=== PATIENT | male | born 1955 | race Caucasian/White ===

== ENCOUNTER 2023-08-20 00:35 | Inpatient (IN) | payer OTHER, MEDICARE ==
[~2023-08-20] VITALS: Ht 175.3 cm; Wt 81.6 kg
[2023-08-20] VITALS (11 sets, daily range): BP systolic 111–143; BP diastolic 60–75; PULSE 63–107; RESP 18–24; TEMP 97.2–98.5; O2SAT 92–99
[2023-08-20] MEDS: NACL 0.9% 1,000 ML IV ONE (01:53)
[2023-08-20 01:58] LABS: BASOPHILS % (AUTO) 0.4 % (0.0-2.0); EOSINOPHILS % (AUTO) 0.6 % (0.0-4.0); HEMATOCRIT 34.8 % (36-52); HEMOGLOBIN 11.5 g/dL (12.0-18.0); LYMPHOCYTES # (AUTO) 0.5 K/uL (2.0-11.5); LYMPHOCYTES % (AUTO) 6.1 % (20.5-51.1); MEAN CORPUSCULAR HEMOGLOBIN 34 pg (27-31); MEAN CORPUSCULAR HGB CONC 33 g/dL (33-37); MEAN CORPUSCULAR VOLUME 101.9 fL (80-94); MONOCYTES # (AUTO) 0.3 K/uL (0.8-1.0); MONOCYTES % (AUTO) 3.7 % (1.7-9.3); NEUTROPHILS # (AUTO) 7.9 K/uL (1.8-7.7); NEUTROPHILS % (AUTO) 89.2 % (42.2-75.2); PLATELET COUNT (AUTO) 222 K/uL (140-450); RED BLOOD CELL COUNT(AUTO) 3.42 MIL/uL (4.20-6.10); RED CELL DISTRIBUTION WIDTH 15.7 % (11.6-13.7); WHITE BLOOD COUNT (AUTO) 8.8 K/uL (4.8-10.8)
[2023-08-20 02:16] LABS: ANION GAP 7.6 (8-16); CALCIUM 9.1 mg/dL (8.5-10.1); CARBON DIOXIDE 36.5 mmol/L (21-32); CREATININE 1.3 mg/dL (0.6-1.3); POTASSIUM 5.1 mmol/L (3.5-5.1)
[2023-08-20 02:25] LABS: LACTIC ACID 1.2 mmol/L (0.4-2.0)
[2023-08-20 02:34] LABS: BILIRUBIN,DIRECT 0.1 mg/dL (0.0-0.3); TOTAL BILIRUBIN 0.2 mg/dL (0.0-1.0)
[2023-08-20] MEDS: ALBUTEROL SULFATE/IPRATROPIU 3 ML SOL IH ONE (02:34)
[2023-08-20 02:35] LABS: ALANINE AMINOTRANSFERASE 36 U/L (12-78); ALBUMIN 2.6 g/dL (3.4-5.0); ALKALINE PHOSPHATASE 86 U/L (50-136); ASPARTATE AMINOTRANSFERASE 26 U/L (15-37); LIPASE 25 U/L (16-77); TOTAL PROTEIN, SERUM 7.3 g/dL (6.4-8.2)
[2023-08-20 04:17] LABS: APPEARANCE,URINE CLEAR (CLEAR); BILIRUBIN,URINE NEGATIVE (NEGATIVE); BLOOD, URINE 3+ (NEGATIVE); COLOR,URINE YELLOW (YELLOW); LEUKOCYTE ESTERASE ,URINE 2+ (NEGATIVE); NITRITE, URINE NEGATIVE (NEGATIVE); PH,URINE 6.5 (5.0-9.0); PROTEIN,URINE 1+ (NEGATIVE); UGLUCOSE NEGATIVE (NEGATIVE); UROBILINOGEN,URINE 0.2 EU/dL (0.2 - 1)
[2023-08-20 04:30] LABS: BACTERIA,URINE >30 (MANY) /HPF (None Seen); MUCUS,URINE 1+ /LPF (None Seen); SQUAMOUS EPITHELIAL CELL,UR 0-3 (FEW) /LPF (0-3 (FEW)); WBC,URINE TOO MANY TO COUNT /HPF (0-5)
[2023-08-20 05:21] LABS: BLOOD GAS BASE EXCESS 4.7 mmol/L (-2.0-2.0); BLOOD GAS HCO3 29.3 mmol/L (22-26); BLOOD GAS PCO2 43.4 mmHg (35-45); BLOOD GAS PH 7.447 (7.35-7.45); BLOOD GAS PO2 63.2 mmHg (75-100)
[2023-08-20 05:22] LABS: BLOOD GAS O2 SAT% 91.6 % (92.0-98.5)
[2023-08-20] MEDS ORDERED: cefTRIAXone 1,000 MG VIAL ONE ×2 (05:37→07:38)
[2023-08-20] MEDS ORDERED: MORPHINE SULFATE 4 MG/ML SYR IVP PRN (07:10)
[2023-08-20] MEDS ORDERED: MAGNESIUM OXIDE 400 MG TAB PO PRN (07:10)
[2023-08-20] MEDS ORDERED: MAG SULF 2000 MG/WATER PREMIX 50 ML IV PRN (07:10)
[2023-08-20] MEDS ORDERED: POTASSIUM CHLORIDE 10 MEQ TABER PO PRN (07:10)
[2023-08-20] MEDS ORDERED: ONDANSETRON 4 MG/2 ML VIAL IVP PRN (07:10)
[2023-08-20] MEDS ORDERED: KCL 20 MEQ IN 100 mL PREMIX 200 ML IV PRN (07:10)
[2023-08-20] MEDS ORDERED: ACETAMINOPHEN 325 MG TAB PO PRN (07:10)
[2023-08-20] MEDS ORDERED: HYDROcodone/APAP 5/325 MG 1 TAB TAB PO PRN (07:10)
[2023-08-20] MEDS: NACL 0.9% 1,000 ML IV SCH (07:45)
[2023-08-20] MEDS ORDERED: ACETAMINOPHEN 325 MG TAB GT PRN (08:30)
[2023-08-20] MEDS ORDERED: MAGNESIUM OXIDE 400 MG TAB GT PRN (08:30)
[2023-08-20] MEDS ORDERED: DOCUSATE SODIUM 100 MG GELCAP PO SCH (09:00)
[2023-08-20] MEDS: DOCUSATE 100 MG/10 ML UDC GT SCH (09:00)
[2023-08-20] MEDS ORDERED: FAMO-90 GT (12:29)
[2023-08-20] MEDS ORDERED: MIRT7.5T14 GT (12:29)
[2023-08-20] MEDS ORDERED: DOCU50LI8 GT (12:29)
[2023-08-20] MEDS ORDERED: ASCO-518 GT (12:29)
[2023-08-20] MEDS ORDERED: MIRABULK GT (12:29)
[2023-08-20] MEDS ORDERED: ASPI-1129 GT (12:29)
[2023-08-20] MEDS ORDERED: CHOL500014 GT (12:29)
[2023-08-20] MEDS ORDERED: KEP500L GT (12:29)
[2023-08-20] MEDS ORDERED: TAMS0.4C96 GT (12:29)
[2023-08-20] MEDS ORDERED: SENN-309 GT (12:29)
[2023-08-20] MEDS ORDERED: ATI.5 GT (12:29)
[2023-08-20] MEDS ORDERED: FINA-54 GT (12:29)
[2023-08-20] MEDS ORDERED: OSC500 GT (12:29)
[2023-08-20] MEDS ORDERED: ZINC220C9 GT (12:29)
[2023-08-20] MEDS: MEDS-TO-BEDS MC SCH (21:59)
[2023-08-21] VITALS (10 sets, daily range): BP systolic 106–146; BP diastolic 57–78; PULSE 85–110; RESP 18–22; TEMP 97–98.9; O2SAT 95–98
[2023-08-21 05:54] LABS: BASOPHILS % (AUTO) 0.5 % (0.0-2.0); EOSINOPHILS # (AUTO) 0.3 K/uL (0-0.4); EOSINOPHILS % (AUTO) 4.3 % (0.0-4.0); HEMATOCRIT 31.3 % (36-52); HEMOGLOBIN 10.3 g/dL (12.0-18.0); LYMPHOCYTES # (AUTO) 0.7 K/uL (2.0-11.5); LYMPHOCYTES % (AUTO) 11.2 % (20.5-51.1); MEAN CORPUSCULAR HEMOGLOBIN 34 pg (27-31); MEAN CORPUSCULAR HGB CONC 33 g/dL (33-37); MEAN CORPUSCULAR VOLUME 102.6 fL (80-94); MONOCYTES # (AUTO) 0.5 K/uL (0.8-1.0); MONOCYTES % (AUTO) 7.3 % (1.7-9.3); NEUTROPHILS # (AUTO) 4.8 K/uL (1.8-7.7); NEUTROPHILS % (AUTO) 76.7 % (42.2-75.2); PLATELET COUNT (AUTO) 191 K/uL (140-450); RED BLOOD CELL COUNT(AUTO) 3.05 MIL/uL (4.20-6.10); RED CELL DISTRIBUTION WIDTH 16.2 % (11.6-13.7); WHITE BLOOD COUNT (AUTO) 6.3 K/uL (4.8-10.8)
[2023-08-21 06:22] LABS: ALBUMIN 2.4 g/dL (3.4-5.0); ANION GAP 10.1 (8-16); CALCIUM 8.7 mg/dL (8.5-10.1); CARBON DIOXIDE 32.1 mmol/L (21-32); MAGNESIUM 2.4 mg/dL (1.8-2.4); POTASSIUM 4.2 mmol/L (3.5-5.1); TOTAL BILIRUBIN 0.4 mg/dL (0.0-1.0); TOTAL PROTEIN, SERUM 6.7 g/dL (6.4-8.2)
[2023-08-21] MEDS: SODIUM PHOSPHATE 118 ML ENEM RC SCH (07:03)
[2023-08-21] MEDS: SUPREP BOWEL PREP KIT 354 ML SOLN.RECON GT SCH (09:20)
[2023-08-21] MEDS: ERYTHROMYCIN 250 MG in NACL 0.9% 100 ML IV SCH (12:36)
[2023-08-21] MEDS: ALBUTEROL SULFATE/IPRATROPIU 3 ML SOL IH SCH (13:00)
[2023-08-21] MEDS: ACETYLCYSTEINE 10% (100 MG/ML) 100 MG/ML VIAL INH SCH (15:58)
[2023-08-21] MEDS: HYDROcodone/APAP 5/325 MG 1 TAB TAB GT PRN (21:52)
[2023-08-22] VITALS (11 sets, daily range): BP systolic 108–131; BP diastolic 51–83; PULSE 78–102; RESP 16–21; TEMP 97–98.2; O2SAT 90–98
[2023-08-22] MEDS ORDERED: LORazepam 2 MG/ML VIAL IVP PRN (02:25)
[2023-08-22 06:00] LABS: BASOPHILS % (AUTO) 0.8 % (0.0-2.0); EOSINOPHILS # (AUTO) 0.1 K/uL (0-0.4); EOSINOPHILS % (AUTO) 1.7 % (0.0-4.0); HEMATOCRIT 31.2 % (36-52); HEMOGLOBIN 10.2 g/dL (12.0-18.0); LYMPHOCYTES # (AUTO) 0.5 K/uL (2.0-11.5); LYMPHOCYTES % (AUTO) 12.2 % (20.5-51.1); MEAN CORPUSCULAR HEMOGLOBIN 34 pg (27-31); MEAN CORPUSCULAR HGB CONC 33 g/dL (33-37); MEAN CORPUSCULAR VOLUME 102.7 fL (80-94); MONOCYTES # (AUTO) 0.3 K/uL (0.8-1.0); MONOCYTES % (AUTO) 8.1 % (1.7-9.3); NEUTROPHILS % (AUTO) 77.2 % (42.2-75.2); PLATELET COUNT (AUTO) 204 K/uL (140-450); RED BLOOD CELL COUNT(AUTO) 3.04 MIL/uL (4.20-6.10); RED CELL DISTRIBUTION WIDTH 15.6 % (11.6-13.7); WHITE BLOOD COUNT (AUTO) 3.8 K/uL (4.8-10.8)
[2023-08-22 06:13] LABS: ALBUMIN 2.2 g/dL (3.4-5.0); ANION GAP 10.8 (8-16); CALCIUM 8.4 mg/dL (8.5-10.1); CARBON DIOXIDE 30.8 mmol/L (21-32); CREATININE 0.9 mg/dL (0.6-1.3); MAGNESIUM 2.5 mg/dL (1.8-2.4); POTASSIUM 3.6 mmol/L (3.5-5.1); TOTAL BILIRUBIN 0.3 mg/dL (0.0-1.0); TOTAL PROTEIN, SERUM 6.5 g/dL (6.4-8.2)
[2023-08-22] MEDS: levETIRAcetam 500 MG in NACL 0.9% 100 ML IV SCH (09:36)
[2023-08-22] MEDS: MEDS-TO-BEDS MC SCH (20:54)
[2023-08-23] VITALS (11 sets, daily range): BP systolic 113–153; BP diastolic 58–76; PULSE 88–103; RESP 17–22; TEMP 97.6–98.6; O2SAT 90–98
[2023-08-23 07:00] LABS: ANION GAP 12.9 (8-16); CALCIUM 8.4 mg/dL (8.5-10.1); CARBON DIOXIDE 28.2 mmol/L (21-32); CREATININE 1.2 mg/dL (0.6-1.3); POTASSIUM 3.1 mmol/L (3.5-5.1)
[2023-08-23 07:01] LABS: ALBUMIN 2.4 g/dL (3.4-5.0); MAGNESIUM 2.3 mg/dL (1.8-2.4); TOTAL BILIRUBIN 0.3 mg/dL (0.0-1.0); TOTAL PROTEIN, SERUM 6.6 g/dL (6.4-8.2)
[2023-08-23 08:00] LABS: BASOPHILS # (AUTO) 0.1 K/uL (0.00-0.22); BASOPHILS % (AUTO) 1.2 % (0.0-2.0); EOSINOPHILS # (AUTO) 0.1 K/uL (0-0.4); EOSINOPHILS % (AUTO) 2.2 % (0.0-4.0); HEMATOCRIT 29.5 % (36-52); HEMOGLOBIN 9.7 g/dL (12.0-18.0); LYMPHOCYTES # (AUTO) 0.6 K/uL (2.0-11.5); LYMPHOCYTES % (AUTO) 12.9 % (20.5-51.1); MEAN CORPUSCULAR HEMOGLOBIN 34 pg (27-31); MEAN CORPUSCULAR HGB CONC 33 g/dL (33-37); MEAN CORPUSCULAR VOLUME 102.5 fL (80-94); MONOCYTES # (AUTO) 0.3 K/uL (0.8-1.0); MONOCYTES % (AUTO) 6.9 % (1.7-9.3); NEUTROPHILS # (AUTO) 3.7 K/uL (1.8-7.7); NEUTROPHILS % (AUTO) 76.8 % (42.2-75.2); PLATELET COUNT (AUTO) 203 K/uL (140-450); RED BLOOD CELL COUNT(AUTO) 2.88 MIL/uL (4.20-6.10); WHITE BLOOD COUNT (AUTO) 4.8 K/uL (4.8-10.8)
[2023-08-23] MEDS: POTASSIUM CHLORIDE 20% 40 MEQ/15 ML UDC GT PRN (09:10)
[2023-08-24] VITALS (13 sets, daily range): BP systolic 118–150; BP diastolic 77; PULSE 78–103; RESP 17–22; TEMP 97.1–98.1; O2SAT 86–99
[2023-08-24 05:34] LABS: BASOPHILS # (AUTO) 0.1 K/uL (0.00-0.22); BASOPHILS % (AUTO) 1.4 % (0.0-2.0); EOSINOPHILS # (AUTO) 0.4 K/uL (0-0.4); EOSINOPHILS % (AUTO) 10.8 % (0.0-4.0); HEMATOCRIT 28.5 % (36-52); HEMOGLOBIN 9.5 g/dL (12.0-18.0); LYMPHOCYTES # (AUTO) 0.7 K/uL (2.0-11.5); LYMPHOCYTES % (AUTO) 18.6 % (20.5-51.1); MEAN CORPUSCULAR HEMOGLOBIN 34 pg (27-31); MEAN CORPUSCULAR HGB CONC 33 g/dL (33-37); MEAN CORPUSCULAR VOLUME 102.2 fL (80-94); MONOCYTES # (AUTO) 0.4 K/uL (0.8-1.0); MONOCYTES % (AUTO) 9.7 % (1.7-9.3); NEUTROPHILS # (AUTO) 2.2 K/uL (1.8-7.7); NEUTROPHILS % (AUTO) 59.5 % (42.2-75.2); PLATELET COUNT (AUTO) 177 K/uL (140-450); RED BLOOD CELL COUNT(AUTO) 2.79 MIL/uL (4.20-6.10); RED CELL DISTRIBUTION WIDTH 16.3 % (11.6-13.7); WHITE BLOOD COUNT (AUTO) 3.7 K/uL (4.8-10.8)
[2023-08-24 06:02] LABS: ALBUMIN 2.3 g/dL (3.4-5.0); ANION GAP 10.7 (8-16); CALCIUM 7.9 mg/dL (8.5-10.1); CARBON DIOXIDE 31.8 mmol/L (21-32); CREATININE 0.9 mg/dL (0.6-1.3); MAGNESIUM 2.3 mg/dL (1.8-2.4); POTASSIUM 3.5 mmol/L (3.5-5.1); TOTAL BILIRUBIN 0.3 mg/dL (0.0-1.0); TOTAL PROTEIN, SERUM 6.2 g/dL (6.4-8.2)
[2023-08-25] VITALS (9 sets, daily range): BP systolic 132–150; BP diastolic 75–77; PULSE 87–96; RESP 17–21; TEMP 98.2–98.4; O2SAT 85–97
[2023-08-25 05:20] LABS: BASOPHILS # (AUTO) 0.1 K/uL (0.00-0.22); BASOPHILS % (AUTO) 2.4 % (0.0-2.0); EOSINOPHILS # (AUTO) 0.4 K/uL (0-0.4); EOSINOPHILS % (AUTO) 10.7 % (0.0-4.0); HEMATOCRIT 29.5 % (36-52); HEMOGLOBIN 9.8 g/dL (12.0-18.0); LYMPHOCYTES # (AUTO) 0.8 K/uL (2.0-11.5); LYMPHOCYTES % (AUTO) 19.3 % (20.5-51.1); MEAN CORPUSCULAR HEMOGLOBIN 34 pg (27-31); MEAN CORPUSCULAR HGB CONC 33 g/dL (33-37); MEAN CORPUSCULAR VOLUME 102.1 fL (80-94); MONOCYTES # (AUTO) 0.4 K/uL (0.8-1.0); MONOCYTES % (AUTO) 11.2 % (1.7-9.3); NEUTROPHILS # (AUTO) 2.3 K/uL (1.8-7.7); NEUTROPHILS % (AUTO) 56.4 % (42.2-75.2); PLATELET COUNT (AUTO) 186 K/uL (140-450); RED BLOOD CELL COUNT(AUTO) 2.89 MIL/uL (4.20-6.10); RED CELL DISTRIBUTION WIDTH 15.8 % (11.6-13.7)
[2023-08-25 07:19] LABS: ALBUMIN 2.3 g/dL (3.4-5.0); ANION GAP 11.7 (8-16); CALCIUM 7.9 mg/dL (8.5-10.1); CARBON DIOXIDE 28.6 mmol/L (21-32); CREATININE 0.9 mg/dL (0.6-1.3); MAGNESIUM 2.1 mg/dL (1.8-2.4); POTASSIUM 3.3 mmol/L (3.5-5.1); TOTAL BILIRUBIN 0.3 mg/dL (0.0-1.0); TOTAL PROTEIN, SERUM 6.2 g/dL (6.4-8.2)
[2023-08-25] MEDS ORDERED: CEFD300C3 PO (11:42)
[2023-08-25] MEDS ORDERED: ACET-1182 GT (11:42)
== END 2023-08-25 15:25 | disposition home or self-care (01) | DRG 720 ==
LOC: MED 00:35 → MTU 07:09
PROVIDERS: ADMIT Hospitalist; ATTEND Hospitalist
DX: A41.9 Sepsis, unspecified organism (principal); J96.01 Acute respiratory failure with hypoxia; J69.0 Pneumonitis due to inhalation of food and vomit; R53.2 Functional quadriplegia; E44.1 Mild protein-calorie malnutrition; R64 Cachexia; K94.23 Gastrostomy malfunction; E87.0 Hyperosmolality and hypernatremia; N39.0 Urinary tract infection, site not specified; R56.9 Unspecified convulsions; E86.1 Hypovolemia; R62.50 Unspecified lack of expected normal physiological development in childhood; K59.00 Constipation, unspecified; Z79.899 Other long term (current) drug therapy; Z79.82 Long term (current) use of aspirin; Z74.01 Bed confinement status; Z68.26 Body mass index [BMI] 26.0-26.9, adult
CPT/HCPCS: 36415; 36600; 71045; 74018; 80048; 80053; 80076; 81001; 82803; 83605; 83690; 83735; 83880; 84484; 85025; 87040; 87081; 87086; 87186; 93005; 94640; 96361; 96365; 99291; J0696; J1364; J1644; J1953; J7060